=== PATIENT | male | born 1985 | race Caucasian/White ===

== ENCOUNTER 2020-02-06 09:17 | Emergency (ER) | payer OTHER ==
[2020-02-06 09:22] VITALS: BP 130/92; PULSE 81; TEMP 97.7; BMI 49.5
--- NOTE | 2020-02-06 09:32 | PDOC ---
History of Present Illness - General Chief Complaint: Pain, Acute Stated Complaint: LEFT FLANK PAIN Time Seen by Provider: 02/06/20 09:18 - History of Present Illness Initial Comments: 02/06/20 09:28 34yo male with pmhx of gerd - on welbutrin and nexium presents for eval of intermittent episodes of flank pain. States on Friday - he woke up with acute onset of L flank pain. No radiation of the pain. States he went to the bathroom and had a bm and passed his urine and the pain resolved. Pt states again this AM he woke up with now R flank pain - went to the bathroom again - had 3 normal bm and passed his urine- but this time the pain did not resolve. Pt states the pain was excrutiating. Pt denies prior hx of similar pain or kidney stones, but states he has a fam hx of kidney stones. Pt denies f/c. No cp/sob. no Rhinorrhea or sore throat. NO dysuria, hematuria, urgency, freq. Pt denies diarrhea. No n/v. No rashes. States the pain resolved upon driving to the ER this AM. Currently, the patient denies all pain or symptoms. Past History - Medical History Allergies/Adverse Reactions: Allergies Allergy/AdvReac Type Severity Reaction Status Date / Time No Known Allergies Allergy Verified 02/06/20 09:18 Home Medications: Ambulatory Orders Bupropion HCl [Bupropion Xl] 450 mg PO DAILY 02/06/20 Esomeprazole Magnesium [Nexium 24Hr] 20 mg PO DAILY 02/06/20 Topiramate [Topamax] 30 mg PO DAILY 02/06/20 COPD: No Psychiatric Problems: Yes (DEPRESSION) - Psycho-Social/Smoking History Smoking History: Former smoker Have you smoked in the past 12 months: No Information on smoking cessation initiated: No - Substance Abuse Hx (Audit-C & DAST Scrn) How often the patient has a drink containing alcohol: Monthly or less Number of drinks the patient has on a typical day: 1 or 2 How often the patient has six or more drinks on one occasion: Never Score: In Men: 4 or > Positive; In Women: 3 or > Positive: 1 Screen Result (Pos requires Nsg. Audit-10AR): Negative In the last yr the pt used illegal drug/Rx for NonMed reason: No Score: Yes response is considered Positive: 0 Screen Result (Positive result requires Nsg. DAST-10): Negative Review of Systems - Review of Systems Able to Perform ROS?: Yes Is the patient limited Citizen [place] proficient: No Constitutional: No: Chills, Fever HEENTM: No: Nose Congestion, Throat Pain, Throat Swelling Respiratory: No: Cough, Shortness of Breath Cardiac (ROS): No: Chest Pain ABD/GI: No: Constipated, Diarrhea, Nausea, Vomiting, Abdominal cramping : Yes: Flank Pain. No: Burning, Dysuria, Frequency, Hematuria Musculoskeletal: No: Back Pain, Neck Pain Neurological: No: Headache, Paresthesia, Weakness All Other Systems: Reviewed and Negative *Physical Exam - Vital Signs Last Vital Signs Temp Pulse Resp BP Pulse Ox 97.7 F 81 19 130/92 98 02/06/20 09:17 02/06/20 09:17 02/06/20 09:17 02/06/20 09:17 02/06/20 09:17 - Physical Exam General Appearance: Yes: Nourished, Appropriately Dressed. No: Apparent Distress HEENT: positive: EOMI, Normal Voice Neck: positive: Supple Respiratory/Chest: positive: Lungs Clear, Normal Breath Sounds. negative: Respiratory Distress Cardiovascular: positive: Regular Rhythm, Regular Rate, S1, S2. negative: Edema Gastrointestinal/Abdominal: positive: Soft, Other (obese). negative: Guarding, Rebound, Tenderness Musculoskeletal: positive: Normal Inspection. negative: CVA Tenderness Extremity: positive: Normal Range of Motion, Other (ambulatory with a steady ga it). negative: Swelling, Calf Tenderness Integumentary: positive: Normal Color, Dry, Warm Neurologic: positive: Fully Oriented, Alert, Normal Mood/Affect, Normal Response ED Treatment Course - LABORATORY CBC & Chemistry Diagram: 02/06/20 09:28 02/06/20 09:28 - RADIOLOGY Radiology Studies Ordered: Category Date Time Status SPIRAL- RENAL-STONE CT [CT] Stat CT Scan 02/06/20 09:26 Ordered Medical Decision Making - Medical Decision Making 02/06/20 09:33 a/p: 34yo male with intermittent episodes of flank pain -concern for renal colic -will send labs, ua, spiral ct -pt currently pain free -pt orally hydrating -pt without cva ttp at this time or abd ttp -will monitor and reassess 02/06/20 11:01 labs reviewed and stable ct without acute pathology pt updated and still pain free pending UA 02/06/20 11:21 some blood in the ua, but no uti discussed ua results and again discussed the ct results discussed need for follow up with the [facility] and need to follow up on the UA and blood will recommend follow up with urology answered all questions pt remains pain free stable for dc to home Discharge - Discharge Information Problems reviewed: Yes Clinical Impression/Diagnosis: Flank pain, Hematuria Condition: Stable Disposition: HOME - Admission No - Follow up/Referral Referrals: Lorraine Vanegas [Non Staff, Medical] - Adalberto Mello MD [Staff Physician] - - Patient Discharge Instructions Patient Printed Discharge Instructions: DI for Flank Pain, DI for Hematuria Additional Instructions: Please drink plenty of fluids. Please call the [facility] and schedule a follow up for this week. Please also call the Urologist and schedule a follow up for the blood in your urine. Please take tylenol or motrin as needed for pain. Please return to the Er with any further concerns or complaints. - Post Discharge Activity
[2020-02-06 10:04] LABS: BASO % 0.6 % (0-2.0); EOS % 2.4 % (0-4.5); HEMOGLOBIN 15.6 GM/dl (11.7-16.9); LYMPH % 21.5 % (8-40); MCH 29.2 pg (25.7-33.7); MCHC 32.5 g/dl (32.0-35.9); MEAN CELL VOLUME 89.8 fl (80-96); MEAN PLT VOLUME 9.1 fl (7.5-11.1); MONO % 6.4 % (3.8-10.2); NEUT % 69.1 % (42.8-82.8); PLATELET COUNT 272 K/MM3 (134-434); RBC 5.35 M/mm3 (4.00-5.60); RDW 13.6 % (11.9-15.9); WHITE BLOOD COUNT 8.4 K/mm3 (4.0-10.8)
[2020-02-06 10:11] LABS: ALBUMIN 3.7 g/dl (3.4-5.0); BILIRUBIN,TOTAL 0.2 mg/dl (0.2-1); CREATININE 1.2 mg/dl (0.55-1.3); POTASSIUM 4.2 mmol/L (3.5-5.1); TOT PROT 7.2 g/dl (6.4-8.2)
[2020-02-06 11:25] LABS: EPITHELIAL CELLS RARE /hpf; URINE MUCUS 1+
== END 2020-02-06 11:28 | disposition home or self-care (01) ==
LOC: FER 09:17
DX: R10.9 Unspecified abdominal pain (principal); R31.9 Hematuria, unspecified
CPT/HCPCS: 36415; 74176-TC; 80053; 81003; 81015; 85025; 87086; 99284-25